=== PATIENT | female | born 1985 ===

== ENCOUNTER → 2021-09-10 13:58 | Outpatient (CLI) | payer OTHER, SELFPAY ==
--- NOTE | 2021-09-10 | DI.MRI.S_ITS ---
PROCEDURE: MR SHOULDER RT WO CON INDICATIONS: Right shoulder pain: evaluation of rotator cuff TECHNIQUE: Noncontrast oblique coronal T2 fast spin echo with fat saturation, oblique sagittal T1 spin echo and T2 fast spin echo with fat saturation, axial T1 spin echo and T2 fast spin echo with fat saturation through the shoulder. COMPARISON: None. FINDINGS: Image quality: Excellent. Rotator cuff: There is mild supraspinatus and infraspinatus tendinosis. The teres minor tendon is intact. The subscapularis tendon is intact. There is no significant rotator cuff muscle atrophy. Mild edema is seen within the lateral belly of the deltoid muscle that may indicate a low-grade muscle strain. Bones and bursae: No acute trabecular bone injury. No focal cartilage defect in the glenohumeral joint. Mild degenerative changes are seen in the acromioclavicular joint. There is trace subacromial/subdeltoid bursal fluid. A physiologic amount of joint fluid is seen in the glenohumeral joint space. Capsule and soft tissues: No displaced labral tear. The proximal biceps long head tendon is intact. There is normal fat signal in the rotator interval. The anterior band of the inferior glenohumeral ligament appears mildly thickened. IMPRESSION: 1. Mild supraspinatus and infraspinatus tendinosis. No significant rotator cuff tendon tear. 2. Low-grade strain of the lateral belly of the deltoid muscle. 3. Mild acromioclavicular osteoarthrosis. 4. Trace subacromial/subdeltoid bursal effusion or mild bursitis. Dictated by: Shukri Baeza M.D. on 09/10/2021 at 16:19 Approved by: Shukri Baeza M.D. on 09/10/2021 at 16:22
== END ==
PROVIDERS: Referring Provider Student in an Organized Health Care Education/Training Program; Visit Provider Student in an Organized Health Care Education/Training Program
DX: S46.811A Strain of other muscles, fascia and tendons at shoulder and upper arm level, right arm, initial encounter (principal); M19.011 Primary osteoarthritis, right shoulder; M25.511 Pain in right shoulder
CPT/HCPCS: 73221

== ENCOUNTER → 2022-06-13 08:16 | Outpatient (CLI) | payer OTHER, SELFPAY ==
--- NOTE | 2022-06-13 | DI.RAD.S_ITS ---
PROCEDURE: [place] SHOULDER INJECTION MR/CT LT INDICATIONS: BILATERAL TENDONITIS COMPARISON: None. TECHNIQUE: The indications, alternatives, benefits, risks, and complications of the procedure were explained to the patient. Written informed consent was obtained and placed in the chart. The shoulder was examined fluoroscopically and a site for needle placement chosen for entry into the glenohumeral joint from an anterior approach. The skin was prepped and draped in a sterile fashion, and 1% lidocaine infiltrated from skin down to joint capsule. A spinal needle was inserted into the glenohumeral joint, and a small amount of iodinated contrast media injected to confirm intra-articular placement of the needle tip. This was followed by approximately 12 mL dilute solution of a gadolinium containing MR contrast agent. The needle was removed and a dressing was applied. The patient was given postprocedural instructions and sent to the MR suite for MR imaging. FINDINGS: A single fluoroscopic spot image demonstrates intra-articular location of injected iodinated contrast. IMPRESSION: Successful fluoroscopically guided administration of dilute Gadolinium solution into the shoulder joint for MR arthrogram. Approved by: Shukri Baeza M.D. on 06/13/2022 at 11:41
--- NOTE | 2022-06-13 | DI.MRI.S_ITS ---
PROCEDURE: MR SHOULDER LT W CON INDICATIONS: BILATERAL TENDONITIS TECHNIQUE: After the administration of 12 mL of dilute intra-articular Gadolinium contrast, oblique coronal T1 and T2 spin echo with fat saturation, oblique sagittal T1 spin echo with and without fat saturation, oblique sagittal T2 fast spin echo with fat saturation, axial T1 spin echo with fat saturation through the shoulder. COMPARISON: [facility], , [place] SHOULDER INJECTION MR/CT LT, 06/13/2022, 8:52. FINDINGS: Image quality: Excellent. Rotator cuff: Mild supraspinatus tendinosis. The infraspinatus, teres minor, and subscapularis tendons are intact. There is no significant rotator cuff muscle atrophy. Bones and bursae: No acute trabecular bone injury or fracture. Small chronic traction cystic changes are seen in the posterosuperior humeral head. No glenohumeral cartilage defect. No intra-articular filling defect is seen in the glenohumeral joint. Mild acromioclavicular joint osteoarthrosis. No significant subacromial/subdeltoid bursal fluid. Capsule and soft tissues: No uptake of intra-articular contrast material is seen to suggest a labral tear. There is mild tendinosis of the proximal biceps long head tendon. Glenohumeral ligaments are intact. IMPRESSION: 1. Mild tendinosis of the proximal biceps long head tendon. 2. Mild supraspinatus tendinosis. No significant rotator cuff tendon tear. 3. No displaced labral tear. No glenohumeral cartilage defect. 4. Mild acromioclavicular joint osteoarthrosis. Approved by: Shukri Baeza M.D. on 06/13/2022 at 12:23
== END ==
DX: M19.012 Primary osteoarthritis, left shoulder (principal); M25.519 Pain in unspecified shoulder; M75.82 Other shoulder lesions, left shoulder; M75.81 Other shoulder lesions, right shoulder
CPT/HCPCS: 23350; 73222